=== PATIENT | male | born 1965 | race Caucasian/White ===

== ENCOUNTER 2018-01-29 04:57 | Inpatient (IN) | payer OTHER ==
[2018-01-29] MEDS: FUROSEMIDE 40 MG TAB PO (07:02)
[2018-01-29] MEDS ORDERED: NITROGLYCERIN (SL) 0.4 MG TAB SL (07:30)
[2018-01-29 08:56] LABS: ADD MAN DIFF? NO
[2018-01-29 09:02] LABS: WHITE BLOOD COUNT 5.2 10^3/ul (4.8-10.8)
[2018-01-29 09:02] LABS: BASOPHIL # 0.1 10^3/ul (0.0-0.1); BASOPHILS % 1.2 % (0.0-2.0); EOSINOPHILS # 0.6 10^3/ul (0.0-0.5); EOSINOPHILS % 12.4 % (0.0-7.0); LYMPHOCYTES # 1.7 10^3/ul (0.8-2.9); LYMPHOCYTES % 32.2 % (15.0-51.0); MEAN CORPUSCULAR HEMOGLOBIN 33.9 pg (29.0-33.0); MEAN CORPUSCULAR HGB CONC 34.2 g/dl (32.0-37.0); MEAN CORPUSCULAR VOLUME 99.2 fl (82.0-101.0); MEAN PLATELET VOLUME 9.9 fl (7.4-10.4); MONOCYTE # 0.7 10^3/ul (0.3-0.9); MONOCYTES % 12.5 % (0.0-11.0); NEUTROPHIL # 2.2 10^3/ul (1.6-7.5); NEUTROPHILS % 41.5 % (39.0-77.0); PLATELET COUNT 128 10^3/UL (140-415); RED BLOOD COUNT 3.83 10^6/ul (4.70-6.10)
[2018-01-29] MEDS: METOPROLOL 25 MG TAB PO ×2 (09:03→20:42)
[2018-01-29] MEDS: LOSARTAN 25 MG TAB PO (09:03)
[2018-01-29] MEDS: ASPIRIN (EC) 81 MG TAB PO (09:04)
[2018-01-29] MEDS: NIFEdipine (XL) 60 MG TAB PO ×2 (09:04→20:42)
[2018-01-29 09:33] LABS: HEMOGLOBIN A1C 4.4 % (0-5.9)
[2018-01-29 09:46] LABS: ALANINE AMINOTRANSFERASE 28 IU/L (13-69); ALBUMIN 4.2 g/dl (3.3-4.9); ALBUMIN/GLOBULIN RATIO 1.35; ALKALINE PHOSPHATASE 95 IU/L (42-121); ANION GAP 20 (8-16); ASPARTATE AMINO TRANSFERASE 22 IU/L (15-46); BILIRUBIN,INDIRECT 0.1 mg/dl (0-1.1); BILIRUBIN,TOTAL 0.1 mg/dl (0.2-1.3); BLOOD UREA NITROGEN 37 mg/dl (7-20); CALCIUM 7.1 mg/dl (8.4-10.2); CARBON DIOXIDE 32 mmol/L (21-31); CHLORIDE 94 mmol/L (97-110); CHOL/HDL RATIO 2.4 RATIO; CHOLESTEROL 107 mg/dl (100-200); CK-MB 0.91 ng/ml (0.0-2.4); CREATININE 7.76 mg/dl (0.61-1.24); GLUCOSE 86 mg/dl (70-220); HDL CHOLESTEROL 44 mg/dl (28-71); LDL CHOLESTEROL,CALCULATED 50 mg/dl; MAGNESIUM 1.9 mg/dl (1.7-2.5); PHOSPHORUS 6.3 mg/dl (2.5-4.9); POTASSIUM 4.6 mmol/L (3.5-5.1); SODIUM 141 mmol/L (135-144); TOTAL PROTEIN 7.3 g/dl (6.1-8.1); TRIGLYCERIDES 67 mg/dl (0-149); TROPONIN-I < 0.012 ng/ml (0.00-0.12)
[2018-01-29 11:05] LABS: TROPONIN-I < 0.012 ng/ml (0.00-0.12)
[2018-01-29 11:05] LABS: CK-MB 0.83 ng/ml (0.0-2.4)
[2018-01-29 13:09] LABS: THYROID STIMULATING HORMONE 0.707 MIU/L (0.465-4.680)
[2018-01-29 18:59] LABS: TROPONIN-I < 0.012 ng/ml (0.00-0.12)
[2018-01-29 18:59] LABS: CK-MB 0.79 ng/ml (0.0-2.4)
[2018-01-29] MEDS: ATORVASTATIN 20 MG TAB PO (20:42)
[2018-01-29] MEDS: hydrALAzine 20 MG INJ IV (21:00)
[2018-01-29] MEDS: ACETAMINOPHEN 325 MG TAB PO (22:43)
[2018-01-30] MEDS: FUROSEMIDE 40 MG TAB PO (05:22)
[2018-01-30 08:45] LABS: ADD MAN DIFF? NO
[2018-01-30] MEDS: ASPIRIN (EC) 81 MG TAB PO (08:45)
[2018-01-30] MEDS: NIFEdipine (XL) 60 MG TAB PO (08:46)
[2018-01-30] MEDS: LOSARTAN 25 MG TAB PO ×2 (08:46→22:06)
[2018-01-30] MEDS: METOPROLOL 25 MG TAB PO ×3 (08:46→23:34)
[2018-01-30 08:48] LABS: BASOPHIL # 0.1 10^3/ul (0.0-0.1); BASOPHILS % 0.9 % (0.0-2.0); EOSINOPHILS # 0.7 10^3/ul (0.0-0.5); EOSINOPHILS % 13.1 % (0.0-7.0); HEMATOCRIT 37.8 % (42.0-52.0); HEMOGLOBIN 12.9 g/dl (14.0-18.0); LYMPHOCYTES % 35.3 % (15.0-51.0); MEAN CORPUSCULAR HEMOGLOBIN 34.2 pg (29.0-33.0); MEAN CORPUSCULAR HGB CONC 34.1 g/dl (32.0-37.0); MEAN CORPUSCULAR VOLUME 100.3 fl (82.0-101.0); MEAN PLATELET VOLUME 11.4 fl (7.4-10.4); MONOCYTE # 0.7 10^3/ul (0.3-0.9); MONOCYTES % 12.2 % (0.0-11.0); NEUTROPHIL # 2.2 10^3/ul (1.6-7.5); NEUTROPHILS % 38.1 % (39.0-77.0); PLATELET COUNT 179 10^3/UL (140-415); RED BLOOD COUNT 3.77 10^6/ul (4.70-6.10); RED CELL DISTRIBUTION WIDTH 16.9 % (11.5-14.5)
[2018-01-30 08:48] LABS: WHITE BLOOD COUNT 5.7 10^3/ul (4.8-10.8)
[2018-01-30 09:18] LABS: ANION GAP 25 (8-16); BLOOD UREA NITROGEN 69 mg/dl (7-20); CALCIUM 6.6 mg/dl (8.4-10.2); CARBON DIOXIDE 27 mmol/L (21-31); CHLORIDE 96 mmol/L (97-110); CREATININE 10.26 mg/dl (0.61-1.24); GLUCOSE 82 mg/dl (70-220); MAGNESIUM 2.1 mg/dl (1.7-2.5); PHOSPHORUS 7.5 mg/dl (2.5-4.9); POTASSIUM 5.2 mmol/L (3.5-5.1); SODIUM 143 mmol/L (135-144)
[2018-01-30 16:49] LABS: HEPATITIS B SURFACE ANTIBODY POSITIVE (NEGATIVE)
[2018-01-30 16:51] LABS: HEPATITIS B SURFACE ANTIGEN NEGATIVE (NEGATIVE)
[2018-01-30] MEDS: CALCIUM GLUCONATE 10% 2 GM in DEXTROSE 5% 100 ML IVPB (17:01)
[2018-01-30] MEDS: HEPARIN 1000 UNITS/ML 10 ML INJ CATHETER (18:28)
[2018-01-30] MEDS: ACETAMINOPHEN 325 MG TAB PO (18:32)
[2018-01-30] MEDS: hydrALAzine 20 MG INJ IV (20:30)
[2018-01-30] MEDS: ATORVASTATIN 20 MG TAB PO (20:31)
[2018-01-31] MEDS: METOPROLOL 50 MG TAB PO ×2 (00:44→08:35)
[2018-01-31] MEDS: hydrALAzine 20 MG INJ IV ×2 (02:52→15:18)
[2018-01-31] MEDS: FUROSEMIDE 40 MG TAB PO (05:46)
[2018-01-31 07:38] LABS: ADD MAN DIFF? NO
[2018-01-31 07:55] LABS: WHITE BLOOD COUNT 5.6 10^3/ul (4.8-10.8)
[2018-01-31 07:55] LABS: BASOPHIL # 0.1 10^3/ul (0.0-0.1); BASOPHILS % 1.3 % (0.0-2.0); EOSINOPHILS # 0.7 10^3/ul (0.0-0.5); EOSINOPHILS % 12.2 % (0.0-7.0); HEMATOCRIT 36.9 % (42.0-52.0); HEMOGLOBIN 12.6 g/dl (14.0-18.0); LYMPHOCYTES # 1.5 10^3/ul (0.8-2.9); MEAN CORPUSCULAR HGB CONC 34.1 g/dl (32.0-37.0); MEAN CORPUSCULAR VOLUME 99.5 fl (82.0-101.0); MEAN PLATELET VOLUME 11.4 fl (7.4-10.4); MONOCYTE # 0.5 10^3/ul (0.3-0.9); MONOCYTES % 9.4 % (0.0-11.0); NEUTROPHIL # 2.8 10^3/ul (1.6-7.5); NEUTROPHILS % 49.9 % (39.0-77.0); PLATELET COUNT 194 10^3/UL (140-415); RED BLOOD COUNT 3.71 10^6/ul (4.70-6.10); RED CELL DISTRIBUTION WIDTH 16.2 % (11.5-14.5)
[2018-01-31 07:59] LABS: ANION GAP 21 (8-16); BLOOD UREA NITROGEN 40 mg/dl (7-20); CALCIUM 7.3 mg/dl (8.4-10.2); CARBON DIOXIDE 27 mmol/L (21-31); CHLORIDE 99 mmol/L (97-110); CREATININE 6.91 mg/dl (0.61-1.24); GLUCOSE 83 mg/dl (70-220); POTASSIUM 5.1 mmol/L (3.5-5.1); SODIUM 142 mmol/L (135-144)
[2018-01-31] MEDS: SEVELAMER 800 MG TAB PO ×2 (08:35→12:35)
[2018-01-31] MEDS: LOSARTAN 25 MG TAB PO (08:35)
[2018-01-31] MEDS: ASPIRIN (EC) 81 MG TAB PO (08:36)
[2018-01-31] MEDS: NIFEdipine (XL) 90 MG TAB PO (08:36)
== END 2018-01-31 16:00 | disposition home or self-care (01) | DRG 304 ==
LOC: MS4 04:57
PROC: 5A1D70Z Performance of Urinary Filtration, Intermittent, Less than 6 Hours Per Day (ICD-10-PCS; principal; 2018-01-30)
DX: I16.0 Hypertensive urgency (principal); N18.6 End stage renal disease; I50.30 Unspecified diastolic (congestive) heart failure; I16.1 Hypertensive emergency; I13.2 Hypertensive heart and chronic kidney disease with heart failure and with stage 5 chronic kidney disease, or end stage renal disease; D63.1 Anemia in chronic kidney disease; R07.9 Chest pain, unspecified; Z99.2 Dependence on renal dialysis
CPT/HCPCS: 80048; 80053; 80061; 82553; 83036; 83735; 84100; 84443; 84484; 85025; 86706; 87340; 90935; 93005; 93306

== ENCOUNTER 2018-02-10 15:23 | Outpatient (CLI) | payer OTHER | END 2018-02-10 17:00 | disposition home or self-care (01) | LOC: DCC 15:23 | DX: R07.9 Chest pain, unspecified (principal); I12.9 Hypertensive chronic kidney disease with stage 1 through stage 4 chronic kidney disease, or unspecified chronic kidney disease; N18.9 Chronic kidney disease, unspecified; H26.9 Unspecified cataract; Z79.82 Long term (current) use of aspirin | CPT/HCPCS: Z7500 ==

== ENCOUNTER 2018-02-24 13:21 | Outpatient (CLI) | payer OTHER | END 2018-02-24 16:01 | disposition home or self-care (01) | LOC: DCC 13:21 | DX: I12.0 Hypertensive chronic kidney disease with stage 5 chronic kidney disease or end stage renal disease (principal); N18.6 End stage renal disease; Z99.2 Dependence on renal dialysis; H54.7 Unspecified visual loss; E78.5 Hyperlipidemia, unspecified; H26.9 Unspecified cataract; Z79.82 Long term (current) use of aspirin | CPT/HCPCS: G0463 ==

== ENCOUNTER 2018-04-23 21:30 | Emergency (ER) | payer OTHER ==
[2018-04-23 23:30] LABS: ADD MAN DIFF? NO
[2018-04-23 23:32] LABS: BASOPHILS % 0.3 % (0.0-2.0); EOSINOPHILS # 0.3 10^3/ul (0.0-0.5); EOSINOPHILS % 5.3 % (0.0-7.0); HEMATOCRIT 31.8 % (42.0-52.0); HEMOGLOBIN 10.6 g/dl (14.0-18.0); LYMPHOCYTES # 1.3 10^3/ul (0.8-2.9); LYMPHOCYTES % 21.7 % (15.0-51.0); MEAN CORPUSCULAR HEMOGLOBIN 32.3 pg (29.0-33.0); MEAN CORPUSCULAR HGB CONC 33.3 g/dl (32.0-37.0); MEAN PLATELET VOLUME 11.6 fl (7.4-10.4); MONOCYTE # 0.8 10^3/ul (0.3-0.9); MONOCYTES % 13.1 % (0.0-11.0); NEUTROPHIL # 3.6 10^3/ul (1.6-7.5); NEUTROPHILS % 59.4 % (39.0-77.0); PLATELET COUNT 135 10^3/UL (140-415); RED BLOOD COUNT 3.28 10^6/ul (4.70-6.10); RED CELL DISTRIBUTION WIDTH 16.7 % (11.5-14.5)
[2018-04-23 23:48] LABS: INR 1.01; PROTIME 13.4 Sec (11.9-14.9)
[2018-04-23 23:49] LABS: PARTIAL THROMBOPLASTIN TIME 27.5 Sec (25.0-35.0)
[2018-04-23 23:51] LABS: ANION GAP 15 (8-16); BLOOD UREA NITROGEN 27 mg/dl (7-20); CALCIUM 7.7 mg/dl (8.4-10.2); CARBON DIOXIDE 34 mmol/L (21-31); CHLORIDE 91 mmol/L (97-110); GLUCOSE 113 mg/dl (70-220); POTASSIUM 4.3 mmol/L (3.5-5.1); SODIUM 136 mmol/L (135-144)
[2018-04-24] MEDS: hydrALAzine 20 MG INJ IV (00:22)
[2018-04-24] MEDS ORDERED: ACETAMINOPHEN 325 MG TAB (00:51)
[2018-04-24] MEDS: ACETAMINOPHEN 325 MG TAB PO (00:53)
== END 2018-04-24 00:54 | disposition home or self-care (01) ==
LOC: E/R 04-24 00:54
DX: D64.9 Anemia, unspecified (principal); I16.0 Hypertensive urgency; I12.9 Hypertensive chronic kidney disease with stage 1 through stage 4 chronic kidney disease, or unspecified chronic kidney disease; N18.9 Chronic kidney disease, unspecified; Z99.2 Dependence on renal dialysis; Z79.82 Long term (current) use of aspirin
CPT/HCPCS: 80048; 85025; 85610; 85730; 86850; 86900; 86901; 96374; 99284-25